=== PATIENT | female | born 1975 | race Caucasian/White ===

== ENCOUNTER 2018-08-04 17:36 | Emergency (ER) | payer BC ==
[2018-08-04] MEDS ORDERED: TORADOL IM ONE (17:45)
--- NOTE | 2018-08-04 17:45 | Emergency Department Report ---
Addendum entered and electronically signed by BRAYDEN MALONE NP 08/04/18 17:46: Blank Doc - Documentation Documentation: Patient received 30mg of Toradol in the triage. Original Note: Blank Doc - Documentation Documentation: This is a 43-year-old female that presents with pelvic/lower back pain. Stated radiates to lower back area. Patient denies any vomiting. Stated has some nausea. Denies any other complaints. This initial assessment diagnostic orders/clinical plan/treatment(s) is/are subject to change based on patient's health status, clinical progression and re- assessment by fellow clinical providers in the ED. Further treatment and workup at subsequent clinical providers discretion. Patient/guardians urged not to elope from ED s their condition may be serious if not clinically assessed and managed. Initial orders include: 1-Patient sent to [facility] for further evaluation and treatment 2- Labs 3- UA
[2018-08-04 19:26] LABS: Alanine Aminotransferase 11 units/L (7-56); Albumin 3.9 g/dL (3.9-5); BUN/Creatinine Ratio 25; Blood Urea Nitrogen 10 mg/dL (7-17); Calcium 8.7 mg/dL (8.4-10.2); Hemolysis Index 12
[2018-08-04 20:45] LABS: Basophils % (Auto) 0.5 % (0.0-1.8); Eosinophils % (Auto) 0.3 % (0.0-4.3); Hematocrit 36.5 % (30.3-42.9); Hemoglobin 12.2 gm/dl (10.1-14.3); Lymphocytes % (Auto) 23.9 % (13.4-35.0); Mean Corpuscular HGB Conc 33 % (30-34); Mean Corpuscular Volume 98 fl (79-97); Monocytes # (Auto) 0.5 K/mm3 (0.0-0.8); Monocytes % (Auto) 6.4 % (0.0-7.3); Platelet Count 331 K/mm3 (140-440); Red Blood Count 3.74 M/mm3 (3.65-5.03); Red Cell Distribution Width 16.3 % (13.2-15.2)
[2018-08-04 21:15] LABS: Bacteria,Urine 1+ /HPF (Negative); Bilirubin,Urine NEG (Negative); Blood,Urine NEG (Negative); Color,Urine Yellow (Yellow); Mucus,Urine 3+ /HPF; Urobilinogen,Urine < 2.0 mg/dL (<2.0)
[2018-08-04] MEDS ORDERED: PERCOCET 5/325 PO ONE (21:23)
--- NOTE | 2018-08-04 21:31 | Emergency Department Report ---
ED Female HPI - General Chief complaint: Abdominal Pain Stated complaint: PELVIC PAIN Time Seen by Provider: 08/04/18 17:43 Source: patient, EMS Mode of arrival: Wheelchair Limitations: No Limitations - History of Present Illness Initial comments: 83-year-old -[place] female presents to the emergency room for lower elbow and left side abdominal pain since 1400. Patient admits to nausea and painful urination. Patient denies any vaginal bleeding vaginal discharge no vomiting and no diarrhea. Patient reports that she took Tylenol at home which she reports did not help. She did not vomit had some nausea. No past medical history. SHe takes no medications and has no known drug allergies. MD Complaint: dysuria -: hour(s) (5) Location: suprapubic Radiation: LLQ Severity: severe Severity scale (0 -10): 10 Quality: cramping, sharp Consistency: constant Improves with: none Worsens with: urination Are you Now?: No Last Menstrual Period: 07/18/18 EDC: 04/24/19 - Related Data Previous Rx's Medication Instructions Recorded Last Taken Type Ibuprofen [Motrin 600 MG tab] 600 mg PO Q8H PRN #30 tablet 08/04/18 Unknown Rx oxyCODONE /ACETAMINOPHEN [Percocet 1 tab PO Q6HR #12 tablet 08/04/18 Unknown Rx 5/325 mg] Allergies Allergy/AdvReac Type Severity Reaction Status Date / Time No Known Allergies Allergy Unverified 08/04/18 17:52 ED Review of Systems ROS: Stated complaint: PELVIC PAIN Other details as noted in HPI Comment: All other systems reviewed and negative Constitutional: denies: chills, fever Gastrointestinal: abdominal pain, nausea Genitourinary: dysuria ED Past Medical Hx - Past Medical History Previous Medical History?: No - Surgical History Past Surgical History?: No - Social History Smoking Status: Current Every Day Smoker Substance Use Type: None - Medications Home Medications: Home Medications Medication Instructions Recorded Confirmed Last Taken Type Ibuprofen [Motrin 600 MG tab] 600 mg PO Q8H PRN #30 tablet 08/04/18 Unknown Rx oxyCODONE /ACETAMINOPHEN [Percocet 1 tab PO Q6HR #12 tablet 08/04/18 Unknown Rx 5/325 mg] ED Physical Exam - General Limitations: No Limitations General appearance: alert, in no apparent distress - Head Head exam: Present: atraumatic, normocephalic - Eye Eye exam: Present: normal appearance - ENT ENT exam: Present: mucous membranes moist - GI/Abdominal GI/Abdominal exam: Present: soft, tenderness, normal bowel sounds. Absent: d istended - Neurological Exam Neurological exam: Present: alert, oriented X3 - Psychiatric Psychiatric exam: Present: normal affect, normal mood - Skin Skin exam: Present: warm, dry, intact, normal color. Absent: rash ED Course Vital Signs 08/04/18 08/04/18 08/04/18 17:44 17:55 18:25 Temperature 97.7 F Pulse Rate 88 Respiratory 18 18 16 Rate Blood Pressure 122/77 O2 Sat by Pulse 100 Oximetry 08/04/18 21:28 Temperature Pulse Rate Respiratory 16 Rate Blood Pressure O2 Sat by Pulse Oximetry ED Medical Decision Making - Lab Data Result diagrams: 08/04/18 17:58 08/04/18 17:58 - Radiology Data Radiology results: report reviewed Patient: VESNA JENSEN MR#: [id number] : 1975 Acct:[id number] Age/Sex: 43 / F ADM Date: 08/04/18 Loc: ED Attending Dr: Ordering Physician: ROBERTA MILLER Date of Service: 08/04/18 Procedure(s): CT abdomen pelvis wo con Accession Number(s): [id number] cc: ROBERTA MILLER FINAL REPORT EXAM: CT ABDOMEN PELVIS WO CON HISTORY: pelvic pain TECHNIQUE: CT abdomen and pelvis without contrast PRIORS: None. FINDINGS: No acute abnormality identified in the lung bases. No focal abnormality identified within the liver parenchyma. The spleen demonstrates normal size and attenuation. No pancreatic abnormalities seen. Kidneys demonstrate no evidence of hydronephrosis or nephrolithiasis. No ureteral calculus identified. The adrenal glands are unremarkable. Abdominal aorta is normal in caliber. No pathologically enlarged lymph nodes are identified. No signs of free fluid or free air No evidence of small bowel dilatation. There are 2 fat containing structures within pelvis just superior to the urinary bladder. To the right of midline there is a largely fat density focus measuring 8.8 by 6.2 by 6.8 centimeters. There is some solid-appearing foci within this structure is wall as peripheral calcifications On the left there is mass measuring 6.9 by 5.2 by 5.2 centimeters. This is also largely fat density. There is a septation and a peripheral calcification present. Noted is small amount of free fluid noted in the lower pelvis. Urinary bladder is unremarkable. Critical care attestation.: If time is entered above; I have spent that time in minutes in the direct care of this critically ill patient, excluding procedure time. ED Disposition Clinical Impression: Pelvic pain, Dermoid cyst of both ovaries Disposition: TO HOME OR SELFCARE Is pt being admited?: No Does the pt Need Aspirin: No Condition: Stable Instructions: Abdominal Pain (ED) Additional Instructions: Please take pain medication as prescribed. It is very important for you to follow up with the [facility] doctor within 1 week. I have listed several below for your convenience. Prescriptions: Ibuprofen [Motrin 600 MG tab] 600 mg PO Q8H PRN #30 tablet PRN Reason: Pain oxyCODONE /ACETAMINOPHEN [Percocet 5/325 mg] 1 tab PO Q6HR #12 tablet Referrals: [facility] MD GIULIANA [Referring] - 3-5 Days [facility] [Provider Group] - 3-5 Days [facility] [Provider Group] - 3-5 Days [facility] [Provider Group] - 3-5 Days LUX NICE MD [Staff Physician] - 3-5 Days JESÚS CHICAS MD [Staff Physician] - 3-5 Days CHEPE CHICAS MD [Referring] - 3-5 Days Forms: Work/School Release Form(ED), Accompanied Note
--- NOTE | 2018-08-04 22:23 | Cat Scan Report ---
FINAL REPORT EXAM: CT ABDOMEN PELVIS WO CON HISTORY: pelvic pain TECHNIQUE: CT abdomen and pelvis without contrast PRIORS: None. FINDINGS: No acute abnormality identified in the lung bases. No focal abnormality identified within the liver parenchyma. The spleen demonstrates normal size and attenuation. No pancreatic abnormalities seen. Kidneys demonstrate no evidence of hydronephrosis or nephrolithiasis. No ureteral calculus identified . The adrenal glands are unremarkable. Abdominal aorta is normal in caliber. No pathologically enlarged lymph nodes are identified. No signs of free fluid or free air No evidence of small bowel dilatation. There are 2 fat containing structures within pelvis just superior to the urinary bladder. To the righ t of midline there is a largely fat density focus measuring 8.8 by 6.2 by 6.8 centimeters. There is s ome solid-appearing foci within this structure is wall as peripheral calcifications On the left there is mass measuring 6.9 by 5.2 by 5.2 centimeters. This is also largely fat density. There is a septation and a peripheral calcification present. Noted is small amount of free fluid noted in the lower pelvis. Urinary bladder is unremarkable. IMPRESSION: 2 masses within the pelvis consistent in appearance with ovarian dermoids
[2018-08-04 23:29] VITALS: BP 122/82
[2018-08-04] MEDS ORDERED: IBUPROFEN PO ONE ×2 (23:49→23:52)
== END 2018-08-04 23:55 | disposition home or self-care (01) ==
LOC: ED 17:36
DX: N83.201 Unspecified ovarian cyst, right side (principal); N83.202 Unspecified ovarian cyst, left side; F17.200 Nicotine dependence, unspecified, uncomplicated
CPT/HCPCS: 36415; 74176; 80053; 81001; 83690; 84703; 85025; 87086; 96372; 99284; J1885